=== PATIENT | female | born 1955 | race Caucasian/White ===

== ENCOUNTER 2017-04-19 21:45 | Emergency (ER) | payer BC ==
--- NOTE | ~2017-04-19 | ER ---
PATIENT'S NAME: DELLA PARK [facility] AGE: 61 Y [address] ROOM: [place] [id number] LOCATION: [facility] ADMIT DATE: 04/19/2017 ER/Outpatient Report DISCHARGE DATE: 04/20/2017 FAMILY PHYSICIAN: Bobo Abdalla MD ATTENDING PHYSICIAN: Ant Montgomery Admission date and time documented on the medical record. I saw the patient at 2200 hours. CHIEF COMPLAINT: Dizziness. HISTORY OF PRESENT ILLNESS: The patient is a 61-year-old female who had an acute onset of dizziness about 30 minutes prior to coming in the emergency department. She also had some congestion, rhinorrhea, and tearing from her eyes accompanied with some nausea. A little bit of pressure in her head along with lightheadedness and dizziness. No vertigo. No fall or trauma. No recent colds, coughs, flus, fever, chills, or sweats. No syncope or near syncope. No chest pain or shortness of breath. No abdominal pain, nausea, vomiting, or diarrhea. No urinary symptoms. No joint or muscle swelling, redness, or pain. No skin eruptions or rash. Does have a history of hypothyroidism. No other endocrine problems. No neuro changes or psych issues. HOME MEDICATIONS: See attached medication list. ALLERGIES: NONE. SOCIAL HISTORY: The patient smokes 3 quarters of a pack of cigarettes per day. Nondrinker. SIGNIFICANT PAST MEDICAL HISTORY: Tobacco abuse, mitral valve prolapse, and hypothyroidism. OPERATIONS: Thyroid surgery. REVIEW OF SYSTEMS: All systems reviewed by me are negative with the exception of those discussed in the history of present illness. PHYSICAL EXAMINATION: VITAL SIGNS: Temperature 97.9 tympanic, pulse 66 and regular, blood pressure PATIENT'S NAME: DELLA PARK [facility] AGE: 61 Y [address] ROOM: [place], [place] [address] LOCATION: [facility] ADMIT DATE: 04/19/2017 ER/Outpatient Report DISCHARGE DATE: 04/20/2017 FAMILY PHYSICIAN: Bobo Abdalla MD ATTENDING PHYSICIAN: Ant Montgomery 180/84, and O2 saturation on room air is 95%. HEENT: Head: Normocephalic. No abrasion, contusion, laceration, or swelling of the scalp or face. Eyes: Extraocular muscles intact. PERRL. Ears: Clear TMs bilaterally. Nose: Clear. Throat: Clear. Mucous membranes moist. No rhinorrhea. No posterior nasal drainage. NECK: No nuchal rigidity. No thyromegaly or cervical adenopathy. No tenderness. SPINE: Negative. LUNGS: Clear. Good air flow. No rales, rhonchi, or wheezes. HEART: Regular. Pulses palpable. ABDOMEN: Soft, nondistended, and nontender. Good bowel tones. No organomegaly or abnormal mass palpable. EXTREMITIES: Intact. NEUROVASCULAR: Intact. SKIN: Clear. No skin eruptions or rash. LABORATORY AND DIAGNOSTIC DATA: CT scan of the head showed no acute hemorrhage, midline shift, mass effect, or skull fracture. There were questionable right maxillary sinus changes. White count 7200, 52 segs, 34 lymphs, 8 monos, 4 eos, 1 baso. Hemoglobin 13.9, hematocrit 41.2, and platelet count is [id number]. CMS was normal. CRP was 0.93. Thyroid tests were normal. IMPRESSION: 1. Lightheadedness and dizziness, etiology uncertain, possibly some sort of viral upper respiratory or inner ear problem. 2. Tobacco abuse. 3. Hypothyroidism. 4. Mitral valve prolapse. PLAN: The patient was discharged home. Observation. Activity as tolerated. Valium 2 mg 3 times a day for 5 days with 1 refill. Follow with personal physician in 5 to 6 days or sooner if needed. Discussion ensued with the patient concerning my findings and recommendations, she understands. MD TAWNY RIOS/modl /[id number] d: 04/20/170 t: 04/23/17 1822, OUTPATIENT REPORT
[2017-04-19 22:26] LABS: BASOPHIL # 0.1 K/uL (0.0-0.2); EOSINOPHIL # 0.3 K/uL (0.0-0.5); HEMATOCRIT 41.2 % (33.0-46.0); HEMOGLOBIN 13.9 g/dL (10.0-15.0); IMMATURE GRANULOCYTE % 0.1 %; LYMPHOCYTE # 2.5 K/uL (0.8-4.0); LYMPHOCYTE % 34.3 %; MCHC 33.7 gm/dL (32.0-36.5); MCV 94.9 fl (83.0-98.0); MONOCYTE # 0.6 K/uL (0.0-1.0); MONOCYTE % 8.2 %; MPV 10.2 fl (9.4-12.4); NEUTROPHIL # (ANC) 3.8 K/uL (1.8-7.8); NEUTROPHIL % 52.4 %; NRBC % 0 /100WBC (0-0.00); PLATELET COUNT 205 K/uL (150-450); RBC 4.34 M/uL (3.50-5.50); RDW-CV 12.4 % (11.9-14.6); WBC 7.2 K/uL (4.0-11.0)
[2017-04-19 22:44] LABS: ALBUMIN 3.4 gm/dL (3.5-5.0); ALK PHOS 58 IU/L (33-138); ALT 21 IU/L (12-78); ANION GAP 11.2 (10.0-19.0); AST 20 IU/L (10-40); BLOOD UREA NITROGEN 14 mg/dL (6-24); CALCIUM 8.8 mg/dL (8.5-10.5); CHLORIDE 107 mMol/L (96-110); CO2 26 mMol/L (22-32); CREATININE 0.8 mg/dL (0.5-1.1); ESTIMATED GFR (MDRD EQUATION) > 60; POTASSIUM 4.2 mMol/L (3.7-5.1); SODIUM 140 mMol/L (135-145); TOTAL BILIRUBIN 0.3 mg/dL (0.0-1.5); TOTAL PROTEIN 6.6 g/dL (6.0-8.4)
== END 2017-04-20 00:07 | disposition disaster alternative care site (69) ==
LOC: GMED 21:45
PROVIDERS: Emergency Medicine
DX: R42 Dizziness and giddiness (principal); I34.1 Nonrheumatic mitral (valve) prolapse; F17.210 Nicotine dependence, cigarettes, uncomplicated; E03.9 Hypothyroidism, unspecified; Z98.890 Other specified postprocedural states; Z79.899 Other long term (current) drug therapy